=== PATIENT | female | born 1990 | race American Indian/Alaskan Native ===

== ENCOUNTER 2017-03-04 17:33 | Emergency (ER) | payer SELFPAY ==
[2017-03-04] MEDS ORDERED: TYLENOL ONE (18:22)
[2017-03-04] MEDS ORDERED: TYLENOL PO ONE (18:24)
--- NOTE | 2017-03-04 19:00 | Emergency Department Report ---
Chief Complaint: Fever Stated Complaint: FEVER/COUGH/BODY ACHE/CHEST PAIN Time Seen by Provider: 03/04/17 18:53 - HPI History of Present Illness: Patient here complaining of flulike symptoms for 3 days. Positive smoker. Complaining of body aches and pain. Now complaining of chest tightness and cough and. She says she has some shortness of breath. Patient temperature is 101.3 and she received Tylenol in triage area. - ROS Review of Systems: All systems are negative unless stated in HPI above - Exam Vital Signs: Vital Signs 03/04/17 18:19 Temperature 101.3 F H Pulse Rate 119 H Respiratory 22 Rate Blood Pressure 132/86 O2 Sat by Pulse 99 Oximetry Physical Exam: General: This is a 26-year-old female that is nontoxic in appearance. Lungs: Wheezing to lung narayan, positive cough, normal work of breathing. No chest wall tenderness. MSE screening note: Focused history and physical exam performed. Due to findings the following was ordered: ED Medical Decision Making - Medical Decision Making Medical decision making: Patient seen by provider in triage area. Appropriate protocol activated and patient to main ED to be seen by physician. ED Disposition for MSE Condition: Stable
[2017-03-04 19:29] LABS: Basophils % (Auto) 0.4 % (0.0-1.8); Hemoglobin 14.5 gm/dl (10.1-14.3); Mean Corpuscular HGB Conc 33 % (30-34); Mean Corpuscular Hemoglobin 29 pg (28-32); Mean Corpuscular Volume 88 fl (79-97); Platelet Count 254 K/mm3 (140-440); Red Blood Count 5.02 M/mm3 (3.65-5.03); White Blood Count 6.9 K/mm3 (4.5-11.0)
[2017-03-04 19:36] LABS: Bacteria,Urine 1+ /HPF (Negative); Bilirubin,Urine NEG (Negative); Blood,Urine NEG (Negative); Ketones,Urine NEG (Negative); Leukocyte Esterase,Urine TR (Negative); Mucus,Urine FEW /HPF; Nitrite,Urine NEG (Negative); Urobilinogen,Urine < 2.0 mg/dL (<2.0)
[2017-03-04 19:46] LABS: Anion Gap 19 mmol/L; BUN/Creatinine Ratio 7.77; Blood Urea Nitrogen 7 mg/dL (7-17); Calcium 9.3 mg/dL (8.4-10.2); Carbon Dioxide 19 mmol/L (22-30); Chloride 95.8 mmol/L (98-107); Glucose 94 mg/dL (65-100); Sodium 130 mmol/L (137-145)
[2017-03-04 19:51] LABS: Creatine Kinase 132 units/L (30-135)
[2017-03-04 19:57] LABS: Creatine Kinase MB < 1.0 ng/mL (0.0-4.0)
[2017-03-04 20:01] LABS: Alanine Aminotransferase 12 units/L (7-56); Albumin 4.2 g/dL (3.9-5); Alkaline Phosphatase 63 units/L (35-129); Bilirubin,Total 0.4 mg/dL (0.1-1.2); Total Protein 8.3 g/dL (6.3-8.2)
[2017-03-04 20:02] LABS: Bilirubin,Direct < 0.2 mg/dL (0-0.2); Bilirubin,Indirect 0.2 mg/dL
[2017-03-05] MEDS ORDERED: TORADOL IM ONE (02:37)
[2017-03-05] MEDS ORDERED: TESSALON PERLES PO ONE (02:37)
[2017-03-05] MEDS ORDERED: NACL 0.9% 1000 ML 1,000 ML IV ONE (02:42)
[2017-03-05] MEDS ORDERED: TORADOL IV ONE (02:42)
[2017-03-05] MEDS ORDERED: ZOFRAN IV ONE (02:42)
--- NOTE | 2017-03-05 04:00 | Emergency Department Report ---
ED Fever HPI - General Chief Complaint: Fever Stated Complaint: FEVER/COUGH/BODY ACHE/CHEST PAIN Time Seen by Provider: 03/04/17 18:53 Source: patient Exam Limitations: no limitations - History of Present Illness Initial Comments: 26-year-old female with a past medical history of bronchitis presents to the hospital with complaints of fever and bodyaches for the past 3 days. Positive cough productive yellow sputum. Occasional shortness of breath with chest tightness. No wheezes reported. Positive nausea without vomiting. No sick contacts or recent travel. Patient did not receive a flu shot. Pain overall he denies chest tenderness intensity. It worsened movement. Patient taken Motrin at home but having trouble breaking fever. ED Review of Systems ROS: Stated complaint: FEVER/COUGH/BODY ACHE/CHEST PAIN Other details as noted in HPI Comment: All other systems reviewed and negative Other: Constitutional: as per hpi Eyes: No eye pain visual changes ENT: No ear pain or throat pain Neck: Denies pain Respiratory: As per HPI Cardiovascular: Denies chest pain, palpitations, syncope GI: Denies abdominal pain, nausea, vomiting, diarrhea : Denies dysuria, Musculoskeletal: myalgias Skin: Denies rash, lesions, erythema Neurologic: Denies headache, numbness, weakness Psychiatric: Denies suicidal ideation, hallucination ED Past Medical Hx - Past Medical History Previous Medical History?: Yes Additional medical history: bronchitis - Surgical History Past Surgical History?: No - Social History Smoking Status: Current Every Day Smoker Substance Use Type: Alcohol - Medications Home Medications: Home Medications Medication Instructions Recorded Confirmed Last Taken Type Azithromycin [Zithromax Z-WILL] 1 dose PO DAILY 5 Days 03/05/17 Unknown Rx Benzonatate [Tessalon Perles] 100 mg PO Q8HR PRN #30 capsule 03/05/17 Unknown Rx Ibuprofen [Motrin] 800 mg PO Q8HR PRN #30 tablet 03/05/17 Unknown Rx ED Physical Exam - General Limitations: No Limitations - Other Other exam information: General: No limitations, patient is alert in no acute distress Head exam: Atraumatic, normocephalic Eyes exam: Normal appearance, pupils equal reactive to light, extraocular movements intact ENT: Moist mucous membrane Neck exam: Normal inspection, full range of motion, no meningismus nontender Respiratory exam: Clear to auscultation bilateral, no wheezes, rales, crackles Cardiovascular: Normal rate and rhythm, normal heart sounds Abdomen: Soft, nondistended, and nontender, with normal bowel sounds, no rebound, or guarding Extremity: Full range of motion normal inspection no deformity Back: Normal Inspection, full range of motion, no tenderness Neurologic: Alert, oriented x3, cranial nerves intact, no motor or sensory deficit Psychiatric: normal affect, normal mood Skin: Warm, dry, intact ED Course Vital Signs 03/04/17 03/05/17 18:19 00:40 Temperature 101.3 F H 98.5 F Pulse Rate 119 H Respiratory 22 18 Rate Blood Pressure 132/86 O2 Sat by Pulse 99 Oximetry - Reevaluation(s) Reevaluation #1: 03/05/17 04:26 pt feeling better with treatment ED Medical Decision Making - Lab Data Result diagrams: 03/04/17 18:53 03/04/17 18:53 Lab Results 03/04/17 03/04/17 03/04/17 Range/Units 18:43 18:53 18:53 WBC 6.9 (4.5-11.0) K/mm3 RBC 5.02 (3.65-5.03) M/mm3 Hgb 14.5 H (10.1-14.3) gm/dl Hct 44.0 H (30.3-42.9) % MCV 88 (79-97) fl MCH 29 (28-32) pg MCHC 33 (30-34) % RDW 14.0 (13.2-15.2) % Plt Count 254 (140-440) K/mm3 Lymph % (Auto) 25.0 (13.4-35.0) % [place] % (Auto) 14.8 H (0.0-7.3) % Eos % (Auto) 0.0 (0.0-4.3) % Baso % (Auto) 0.4 (0.0-1.8) % Lymph # 1.7 (1.2-5.4) K/mm3 [place] # 1.0 H (0.0-0.8) K/mm3 Eos # 0.0 (0.0-0.4) K/mm3 Baso # 0.0 (0.0-0.1) K/mm3 Seg Neutrophils % 59.8 (40.0-70.0) % Seg Neutrophils # 4.1 (1.8-7.7) K/mm3 VBG pH (7.320-7.420) Sodium 130 L (137-145) mmol/L Potassium 4.0 (3.6-5.0) mmol/L Chloride 95.8 L (98-107) mmol/L Carbon Dioxide 19 L (22-30) mmol/L Anion Gap 19 mmol/L BUN 7 (7-17) mg/dL Creatinine 0.9 (0.7-1.2) mg/dL Estimated GFR > 60 ml/min BUN/Creatinine Ratio 7.77 % Glucose 94 (65-100) mg/dL Calcium 9.3 (8.4-10.2) mg/dL Total Bilirubin (0.1-1.2) mg/dL Direct Bilirubin (0-0.2) mg/dL Indirect Bilirubin mg/dL AST (5-40) units/L ALT (7-56) units/L Alkaline Phosphatase (35-129) units/L Total Creatine Kinase (30-135) units/L CK-MB (CK-2) (0.0-4.0) ng/mL CK-MB (CK-2) Rel Index (0-4) Troponin T (0.00-0.029) ng/mL Total Protein (6.3-8.2) g/dL Albumin (3.9-5) g/dL Albumin/Globulin Ratio % Urine Color Yellow (Yellow) Urine Turbidity Cloudy (Clear) Urine pH 6.0 (5.0-7.0) Ur Specific [place] 1.021 (1.003-1.030) Urine Protein 30 mg/dl (Negative) mg/dL Urine Glucose (UA) Neg (Negative) mg/dL Urine Ketones Neg (Negative) mg/dL Urine Blood Neg (Negative) Urine Nitrite Neg (Negative) Urine Bilirubin Neg (Negative) Urine Urobilinogen < 2.0 (<2.0) mg/dL Ur Leukocyte Esterase Tr (Negative) Urine WBC (Auto) 4.0 (0.0-6.0) /HPF Urine RBC (Auto) 13.0 (0.0-6.0) /HPF U Epithel Cells (Auto) 35.0 H (0-13.0) /HPF Urine Bacteria (Auto) 1+ (Negative) /HPF Urine Mucus Few /HPF Urine HCG, Qual Negative (Negative) 03/04/17 03/04/17 03/04/17 Range/Units 18:53 19:01 19:27 WBC (4.5-11.0) K/mm3 RBC (3.65-5.03) M/mm3 Hgb (10.1-14.3) gm/dl Hct (30.3-42.9) % MCV (79-97) fl MCH (28-32) pg MCHC (30-34) % RDW (13.2-15.2) % Plt Count (140-440) K/mm3 Lymph % (Auto) (13.4-35.0) % [place] % (Auto) (0.0-7.3) % Eos % (Auto) (0.0-4.3) % Baso % (Auto) (0.0-1.8) % Lymph # (1.2-5.4) K/mm3 [place] # (0.0-0.8) K/mm3 Eos # (0.0-0.4) K/mm3 Baso # (0.0-0.1) K/mm3 Seg Neutrophils % (40.0-70.0) % Seg Neutrophils # (1.8-7.7) K/mm3 VBG pH 7.409 (7.320-7.420) Sodium (137-145) mmol/L Potassium (3.6-5.0) mmol/L Chloride (98-107) mmol/L Carbon Dioxide (22-30) mmol/L Anion Gap mmol/L BUN (7-17) mg/dL Creatinine (0.7-1.2) mg/dL Estimated GFR ml/min BUN/Creatinine Ratio % Glucose (65-100) mg/dL Calcium (8.4-10.2) mg/dL Total Bilirubin 0.4 (0.1-1.2) mg/dL Direct Bilirubin < 0.2 (0-0.2) mg/dL Indirect Bilirubin 0.2 mg/dL AST 17 (5-40) units/L ALT 12 (7-56) units/L Alkaline Phosphatase 63 (35-129) units/L Total Creatine Kinase 132 (30-135) units/L CK-MB (CK-2) < 1.0 (0.0-4.0) ng/mL CK-MB (CK-2) Rel Index 0.7 (0-4) Troponin T < 0.010 (0.00-0.029) ng/mL Total Protein 8.3 H (6.3-8.2) g/dL Albumin 4.2 (3.9-5) g/dL Albumin/Globulin Ratio 1.0 % Urine Color (Yellow) Urine Turbidity (Clear) Urine pH (5.0-7.0) Ur Specific [place] (1.003-1.030) Urine Protein (Negative) mg/dL Urine Glucose (UA) (Negative) mg/dL Urine Ketones (Negative) mg/dL Urine Blood (Negative) Urine Nitrite (Negative) Urine Bilirubin (Negative) Urine Urobilinogen (<2.0) mg/dL Ur Leukocyte Esterase (Negative) Urine WBC (Auto) (0.0-6.0) /HPF Urine RBC (Auto) (0.0-6.0) /HPF U Epithel Cells (Auto) (0-13.0) /HPF Urine Bacteria (Auto) (Negative) /HPF Urine Mucus /HPF Urine HCG, Qual (Negative) - Radiology Data Radiology results: image reviewed (chest x-ray: No acute findings) - Medical Decision Making I suspect the patient has a viral syndrome. Flu test negative in the ED. Patient will be covered with antibiotics for acute bronchitis is atypical pneumonia, it was explained that if symptoms are viral and that antibiotics would not treat current infection. Patient voices understanding. Patient reports feeling better with ED treatment including normal saline, Toradol, Tessalon Perles, and Tylenol given prior to my evaluation. Patient's labs did give for mild hyponatremia and low chloride. Normal saline was given for treatment - Differential Diagnosis viral syndrome, influenza, pneumonia, UTI Critical Care Time: No Critical care attestation.: If time is entered above; I have spent that time in minutes in the direct care of this critically ill patient, excluding procedure time. ED Disposition Clinical Impression: Viral syndrome, Acute bronchitis Disposition: DISCHARGED TO HOME OR SELFCARE Is pt being admited?: No Does the pt Need Aspirin: No Condition: Stable Instructions: Acute Bronchitis (ED) Additional Instructions: Take the medication as prescribed. In addition to Motrin you may also take Tylenol as needed for pain or fever. Follow-up with the clinic or doctor provided. Return if symptoms worsen Prescriptions: Azithromycin [Zithromax Z-WILL] 1 dose PO DAILY 5 Days Benzonatate [Tessalon Perles] 100 mg PO Q8HR PRN #30 capsule PRN Reason: Cough Ibuprofen [Motrin] 800 mg PO Q8HR PRN #30 tablet PRN Reason: Pain Referrals: [facility] [Provider Group] - 3-5 Days TEZ CUI MD [Staff Physician] - 3-5 Days Time of Disposition: 04:30
[2017-03-05 04:41] VITALS: BP 132/77
--- NOTE | 2017-03-05 10:26 | XRay Report ---
CHEST TWO VIEWS: 03/04/17 17:33:00 CLINICAL: Shortness of breath. COMPARISON: None FINDINGS: Normal heart and pulmonary vasculature. The lungs are normally expanded and clear. The bones and soft tissues are normal. IMPRESSION: Normal chest.
== END 2017-03-05 04:41 | disposition home or self-care (01) ==
LOC: ED 17:33
DX: B34.9 Viral infection, unspecified (principal); J20.9 Acute bronchitis, unspecified; F17.200 Nicotine dependence, unspecified, uncomplicated; Z88.8 Allergy status to other drugs, medicaments and biological substances
CPT/HCPCS: 36415; 71020; 80048; 80074; 81001; 81025; 82550; 82553; 82805; 84484; 85025; 87086; 87400; 93005; 93010; 96361; 96374; 96375; 99284; J1885; J2405; J7030